=== PATIENT | female | born 2000 | race Caucasian/White ===

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

== ENCOUNTER 2025-04-30 11:42 | Emergency (ER) | payer OTHER ==
[~2025-04-30] VITALS: Ht 170.2 cm; Wt 119.4 kg
[2025-04-30 11:47] VITALS: BP 145/90; TEMP 97.9; O2SAT 100
[2025-04-30] MEDS ORDERED: BENA25CA4 PO (11:51)
[2025-04-30] MEDS: ALBUTEROL SULFATE 2.5 MG/0.5 ML INH CONCENTRATE NEB SOLN NEB ONE (12:48)
[2025-04-30] MEDS ORDERED: VENTAER INH (13:57)
== END 2025-04-30 14:08 | disposition home or self-care (01) ==
LOC: M ED 11:42
DX: J98.01 Acute bronchospasm (principal)